=== PATIENT | male | born 1945 | race Caucasian/White ===

== ENCOUNTER → 2017-12-18 | Outpatient (CLI) | payer OTHER ==
[~2017-12-18] MED LIST: ADULT LOW DOSE81 MG PO; ALLOPURINOL 30300 M2 PO; ASPIRIN325 PO; COUMADIN 3 MG TA3 MG PO; CRESTOR5 MG PO; DEPO-TESTO200 MG/1 M IM; FLOMAX0.4 MG PO; HYDROCODON-ACE1 EAC7 PO; INVOKANA300 MG PO; LOPRESSOR25 PO; LOTREL 5-20 MG1 EACH PO; METFORMIN HCL500 MG PO; NITROGLYCERIN0.4 MG SUBLING; NORCO 5-325 TA1 EACH PO; OMEPRAZOLE40 MG PO; POTASSIUM CHLO10 MEQ PO; TESTOPEL75 MG IMPLANT; TUMS PO; VITAMIN B-12500 MCG PO; ZETIA10 MG PO
[2017-12-18 08:22] LABS: POTASSIUM 4.3 mmol/L (3.5-5.1)
== END ==
LOC: M.LAB 03:03
PROVIDERS: Anesthesiology
DX: Z01.812 Encounter for preprocedural laboratory examination (principal); I11.0 Hypertensive heart disease with heart failure; I50.32 Chronic diastolic (congestive) heart failure; E78.5 Hyperlipidemia, unspecified

== ENCOUNTER → 2018-01-04 | Outpatient (CLI) | payer OTHER ==
[2018-01-04 12:45] LABS: CALCIUM 8.8 mg/dL (8.5-10.1); CREATININE 1.3 mg/dL (0.6-1.3); POTASSIUM 4.1 mmol/L (3.5-5.1)
== END ==
LOC: M.LAB 12:19
PROVIDERS: Internal Medicine Cardiovascular Disease
DX: I13.0 Hypertensive heart and chronic kidney disease with heart failure and stage 1 through stage 4 chronic kidney disease, or unspecified chronic kidney disease (principal); E11.22 Type 2 diabetes mellitus with diabetic chronic kidney disease; I50.33 Acute on chronic diastolic (congestive) heart failure; N18.9 Chronic kidney disease, unspecified; Z79.01 Long term (current) use of anticoagulants; Z86.2 Personal history of diseases of the blood and blood-forming organs and certain disorders involving the immune mechanism; Z95.2 Presence of prosthetic heart valve

== ENCOUNTER 2018-03-27 00:56 | Emergency (ER) | payer OTHER ==
[~2018-03-27] VITALS: Ht 175.3 cm; Wt 106.6 kg
[~2018-03-27 00:56] MED LIST changes: -POTASSIUM CHLO10 MEQ PO
[2018-03-27] MEDS ORDERED: POTASSIUM CHLO10 MEQ PO (01:07)
[2018-03-27 02:00] VITALS: BP 131/88
== END 2018-03-27 02:00 | disposition home or self-care (01) ==
LOC: M.ERS 00:56
DX: L50.9 Urticaria, unspecified (principal); Z87.442 Personal history of urinary calculi; E78.5 Hyperlipidemia, unspecified; M10.9 Gout, unspecified; Z98.890 Other specified postprocedural states

== ENCOUNTER 2019-01-24 12:34 | Inpatient (IN) | payer OTHER ==
[~2019-01-24] VITALS: Ht 175.3 cm; Wt 115.2 kg
--- NOTE | ~2019-01-24 | PROC ---
[address] [address] PROCEDURE REPORT Name: JOHN HERNANDEZ JR Room: [address] IN M.R.#: [id number] Admission: 01/24/19 Attend Phys: Yair Colunga MD Discharge: 01/26/19 Date of : 47 Report #: [id number] THIS REPORT FOR: //name// For GI report, please see the Provation report in Perceptive 7 content. By: [id number] Records Staff DAISHA /JUDY
[~2019-01-24 12:34] MED LIST changes: +POTASSIUM CHLO10 MEQ PO
[2019-01-24 12:40] VITALS: BP 171/89
[2019-01-24] MEDS ORDERED: LASIX 20 MG TAB20 MG PO (12:49)
[2019-01-24] MEDS ORDERED: NEURONTIN 300300 M1 PO (12:50)
[2019-01-24] MEDS ORDERED: TRESIBA100 UNIT/1 SUBQ (12:50)
[2019-01-24] MEDS ORDERED: JARDIANCE10 MG PO (12:50)
[2019-01-24 13:21] LABS: ABSOLUTE BASOPHILS 0.1 thou/uL (0.0-0.2); ABSOLUTE EOSINOPHILS 0.1 thou/uL (0.0-0.7); ABSOLUTE LYMPHOCYTES 1.5 thou/uL (0.8-5.3); ABSOLUTE MONOCYTES 0.6 thou/uL (0.0-1.2); ABSOLUTE NEUTROPHILS 4.7 thou/uL (1.6-8.1); BASOPHILS 0.8 %; EOSINOPHILS 1.4 %; HEMATOCRIT 39.8 % (42.0-52.0); HEMOGLOBIN 12.6 gm/dL (14.0-18.0); LYMPHOCYTES 21.4 %; MCH 22.7 pg (26.0-34.0); MCHC 31.7 g/dL (28.0-37.0); MCV 71.6 fL (80.0-100.0); MONOCYTES 8.8 %; MPV 8.6 fl. (7.2-11.1); NUCLEATED RBCS 0 /100WBC; PLATELET COUNT* 191 thou/uL (150-400); POLYS 67.6 %; RBC 5.55 mil/uL (4.50-6.00); RDW-CV 19.4 % (10.5-14.5)
[2019-01-24 13:29] LABS: ANION GAP 7 mmol/L (7-16); BUN 19 mg/dL (7-18); CALCIUM 9.4 mg/dL (8.5-10.1); CHLORIDE 106 mmol/L (98-107); CO2 29 mmol/L (21-32); CREATININE 1.1 mg/dL (0.6-1.3); GLUCOSE 105 mg/dL (70-99); POTASSIUM 4.3 mmol/L (3.5-5.1); SODIUM 142 mmol/L (136-145)
[2019-01-24 13:30] LABS: APTT 23.8 Seconds (25.0-31.3); PROTIME 10.2 Seconds (9.20-11.50)
[2019-01-24 13:39] LABS: ALBUMIN 3.8 g/dL (3.4-5.0); ALKALINE PHOSPHATASE 63 U/L (46-116); LIPASE 72 U/L (73-393); SGOT 10 U/L (15-37); SGPT 19 U/L (30-65); TOTAL BILIRUBIN 0.7 mg/dL (<0.1-1.0); TOTAL PROTEIN 7.3 g/dL (6.4-8.2); TROPONIN-I LEVEL <0.06 ng/mL (<0.06)
[2019-01-24 14:45] LABS: HYPOCHROMASIA 2+; MICROCYTES 2+
[2019-01-24 14:46] LABS: ANISOCYTOSIS 1+
--- NOTE | 2019-01-24 15:04 | EKG ---
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
[2019-01-24 17:30] VITALS: BP 162/87
[2019-01-24 20:00] VITALS: BP 159/88
[2019-01-24 20:43] VITALS: BP 163/82
[2019-01-25] VITALS: BP 149/85
[2019-01-25 04:00] VITALS: BP 136/83
[2019-01-25 04:39] LABS: ABSOLUTE EOSINOPHILS 0.1 thou/uL (0.0-0.7); ABSOLUTE LYMPHOCYTES 1.4 thou/uL (0.8-5.3); ABSOLUTE MONOCYTES 0.7 thou/uL (0.0-1.2); ABSOLUTE NEUTROPHILS 3.9 thou/uL (1.6-8.1); BASOPHILS 0.7 %; EOSINOPHILS 1.8 %; HEMATOCRIT 39.2 % (42.0-52.0); HEMOGLOBIN 12.2 gm/dL (14.0-18.0); MCH 22.4 pg (26.0-34.0); MCHC 31.2 g/dL (28.0-37.0); MCV 71.9 fL (80.0-100.0); MPV 8.3 fl. (7.2-11.1); NUCLEATED RBCS 0 /100WBC; PLATELET COUNT* 189 thou/uL (150-400); POLYS 63.5 %; RBC 5.45 mil/uL (4.50-6.00); RDW-CV 19.3 % (10.5-14.5); WBC 6.2 thou/uL (4.0-11.0)
[2019-01-25 04:53] LABS: CALCIUM 8.6 mg/dL (8.5-10.1); POTASSIUM 3.8 mmol/L (3.5-5.1)
[2019-01-25 05:24] LABS: ANISOCYTOSIS 2+; HYPOCHROMASIA 2+; POIKILOCYTOSIS 2+
[2019-01-25 05:25] LABS: MICROCYTES 2+; OVALOCYTES Occasional; SCHISTOCYTES Occasional; TEARDROPS Occasional
[2019-01-25 05:26] LABS: POLYCHROMASIA Occasional
[2019-01-25 08:00] VITALS: BP 139/86
[2019-01-25 12:54] VITALS: BP 140/79
[2019-01-25 15:53] VITALS: BP 148/83
[2019-01-25 20:00] VITALS: BP 159/88
[2019-01-26] VITALS: BP 136/80
[2019-01-26 04:00] VITALS: BP 158/87
[2019-01-26 07:45] VITALS: BP 155/86
--- NOTE | 2019-01-26 08:58 | CON ---
[address] [address] CONSULTATION Name: JOHN HERNANDEZ JR Room: [address] IN .Jennifer.#: [id number] Admission: 01/24/19 Attend Phys: Yair Colunga MD Discharge: Date of : 47 Report #: [id number] THIS REPORT FOR: //name// CC: Yair Mahajanily Anjel DATE OF SERVICE: 01/25/2019 REASON FOR CONSULT: GI bleed. HISTORY OF PRESENT ILLNESS: This is a 74-year-old male who reports that his last colonoscopy was 8 years ago. He started having 2 bloody stools yesterday, which prompted his hospitalization. He is hemodynamically stable and has not had any BM since hospitalization. He denies any upper GI symptoms, as he denies nausea, vomiting, dyspepsia, GERD and dysphagia, even though he has been taking PPI for many years and reports that as long as he is on his PPI, he does not have any upper GI symptoms. The patient also admits to taking Coumadin and full-dose aspirin. He has had a CABG 2 years ago. PAST MEDICAL HISTORY: Significant for history of colon polyps more than 8 years ago, gastroesophageal reflux disease with EGD about 10 years ago, aortic stenosis, anemia, diabetes mellitus, coronary artery disease status post CABG and hypertension. ALLERGIES: No known drug allergy. MEDICATIONS: Please refer to MAR. SOCIAL HISTORY: The patient lives at home. Denies tobacco or alcohol use. FAMILY HISTORY: Negative for GI malignancy. PHYSICAL EXAMINATION: VITAL SIGNS: Reveals blood pressure of 136/83, respirations 20, pulse 70 and temperature 98.0. LUNGS: Clear. CARDIOVASCULAR: Regular. ABDOMEN: Large, soft, nontender and nondistended. Bowel sounds are positive. NEUROLOGIC: The patient is alert and oriented x 3. There are no focal neurologic deficits. LABORATORY DATA: Reveal sodium of 140, potassium is 3.8, BUN is 16, creatinine 1.0, glucose 96. Lipase is 72. AST 10, ALT 19 and albumin 3.8. INR is 1.0. WBC is 6.2 with hemoglobin of 12.2 and platelet of 189. [place] [address] CONSULTATION Name: MARYJOHNARA Rodriguez JR Room: [address] IN [facility]#: [id number] Admission: 01/24/19 Attend Phys: Yair Colunga MD Discharge: Date of : 47 Report #: [id number] IMAGING: CT of abdomen and pelvis was obtained. There was pandiverticulosis noted in the CT. There is also moderate right renal artery stenosis. There is no sign of active bleeding per CT. ASSESSMENT AND PLAN: The patient with what appears to be self-limited diverticular bleed. He is tolerating clear liquids. We will prep him and consider colonoscopy on Sunday. Meanwhile, monitor his hemoglobin, and if he continues to rebleed and drop his hemoglobin, we will transfuse accordingly. The patient is agreeable with plan. <ELECTRONICALLY SIGNED> By: Kofi Lu MD 01/26/19 0858 0948 [id number] Lu MD /nt
[2019-01-26 12:39] VITALS: BP 155/86
--- NOTE | 2019-01-28 17:06 | PATH ---
[place] [address] PATHOLOGY RPT PROCEDURE Name: JOHN HERNANDEZ JR Room: [address] IN M.R.#: [id number] Admission: 01/24/19 Date of : 47 Discharge: 01/26/19 Report #: [id number] Path Case #: [id number] [facility] Accession Number: [id number] . 01 Material submitted: . esophagus - BIOPSY DISTAL ESOPHAGUS RULE OUT BARRETTS. Modifiers: distal . 01 Clinical history: . Rule out Queen's . 02 Diagnosis: Colon biopsy, distal esophagus: - Benign esophageal and gastric/columnar types mucosa with moderate chronic inflammation typical of reflux, negative for goblet cells/diagnostic Queen's metaplasia and dysplasia. (ANTHONY:pit; 01/28/2019) QTP 01/28/2019 1250 Local . 02 Electronically signed: . Edwin Sheehan MD, Pathologist NPI- [id number] . 01 Gross description: . The specimen is received in formalin, labeled "Hernandez John Jr, biopsy distal esophagus" and consists of 2 fragments of [place] tissue measuring 0.3 x 0.2 cm and 0.3 x 0.3 cm which are entirely submitted in A1. (SDY; 01/27/2019) SYU/SYU 01/27/2019 1203 Local . 02 Pathologist provided ICD-10: K29.50 . 02 CPT . 166182 Specimen Comment: A courtesy copy of this report has been sent to Specimen Comment: [phone], . Specimen Comment: Report sent to / DR SRINIVASAN Performed at: 01 [facility] [address], [place], [place] [id number] MD Jason Hernández MD Phone: [phone] Performed at: [address] [address] [place] [id number] MD Edwin Sheehan MD Phone: [phone]
== END 2019-01-26 13:20 | disposition home or self-care (01) | DRG 378 ==
LOC: M.ERS 12:34 → M.2W 14:02 → M.TBA-ER 14:02 → M.2W 17:50
PROVIDERS: Family Medicine; ADMIT Internal Medicine
PROC: 0DB48ZX Excision of Esophagogastric Junction, Via Natural or Artificial Opening Endoscopic, Diagnostic (ICD-10-PCS; principal; 2019-01-24)
DX: K57.31 Diverticulosis of large intestine without perforation or abscess with bleeding (principal); D62 Acute posthemorrhagic anemia; I25.10 Atherosclerotic heart disease of native coronary artery without angina pectoris; K64.8 Other hemorrhoids; E11.9 Type 2 diabetes mellitus without complications; E78.5 Hyperlipidemia, unspecified; K44.9 Diaphragmatic hernia without obstruction or gangrene; K21.9 Gastro-esophageal reflux disease without esophagitis; G89.29 Other chronic pain; E11.40 Type 2 diabetes mellitus with diabetic neuropathy, unspecified; E11.22 Type 2 diabetes mellitus with diabetic chronic kidney disease; I12.9 Hypertensive chronic kidney disease with stage 1 through stage 4 chronic kidney disease, or unspecified chronic kidney disease; N18.9 Chronic kidney disease, unspecified; M10.9 Gout, unspecified; Z87.442 Personal history of urinary calculi; Z95.1 Presence of aortocoronary bypass graft; Z79.84 Long term (current) use of oral hypoglycemic drugs; Z79.899 Other long term (current) drug therapy; Z79.82 Long term (current) use of aspirin; Z95.2 Presence of prosthetic heart valve

== ENCOUNTER → 2019-12-19 | Outpatient (CLI) | payer MEDICARE ==
[~2019-12-19] MED LIST changes: +JARDIANCE10 MG PO; +LASIX 20 MG TAB20 MG PO; +NEURONTIN 300300 M1 PO; +TRESIBA100 UNIT/1 SUBQ
== END ==
LOC: M.ULTRA 09:13
PROVIDERS: ATTEND Internal Medicine
DX: I10 Essential (primary) hypertension (principal)

== ENCOUNTER → 2020-01-15 | Outpatient (CLI) | payer MEDICARE ==
[2020-01-15 07:13] LABS: CREATININE 1.1 mg/dL (0.6-1.3)
== END ==
LOC: M.CT 12-30 12:03 → M.LAB 01-08 08:00 → M.CT 06:45
PROVIDERS: ATTEND Internal Medicine
DX: I70.1 Atherosclerosis of renal artery (principal); I10 Essential (primary) hypertension

== ENCOUNTER 2020-06-18 22:28 | Inpatient (IN) | payer MEDICARE ==
[~2020-06-18] VITALS: Ht 175.3 cm; Wt 90.7 kg
[2020-06-18 22:40] VITALS: BP 180/106
[2020-06-18] MEDS ORDERED: PROAIR HFA8.5 GM INH (23:16)
[2020-06-18] MEDS ORDERED: FERRETTS325 MG PO (23:17)
[2020-06-18] MEDS ORDERED: NORVASC5 M1 PO (23:17)
[2020-06-18] MEDS ORDERED: NEURONTIN100 MG PO (23:17)
[2020-06-18] MEDS ORDERED: LISINOPRIL10 MG PO (23:18)
[2020-06-18] MEDS ORDERED: MELOXICAM15 MG PO (23:18)
[2020-06-18] MEDS ORDERED: TRESIBA100 UNIT/1 SQ (23:18)
[2020-06-18 23:27] LABS: ABSOLUTE EOSINOPHILS 0.2 thou/uL (0.0-0.7); ABSOLUTE LYMPHOCYTES 2.4 thou/uL (0.8-5.3); ABSOLUTE MONOCYTES 0.6 thou/uL (0.0-1.2); ABSOLUTE NEUTROPHILS 4.8 thou/uL (1.6-8.1); BASOPHILS 0.5 %; EOSINOPHILS 1.9 %; HEMATOCRIT 51.8 % (42.0-52.0); HEMOGLOBIN 17.8 gm/dL (14.0-18.0); LYMPHOCYTES 29.7 %; MCH 30.4 pg (26.0-34.0); MCHC 34.3 g/dL (28.0-37.0); MCV 88.7 fL (80.0-100.0); MONOCYTES 7.6 %; MPV 8.4 fl. (7.2-11.1); NUCLEATED RBCS 0 /100WBC; PLATELET COUNT* 180 thou/uL (150-400); POLYS 60.3 %; RBC 5.84 mil/uL (4.50-6.00); RDW-CV 15.7 % (10.5-14.5)
[2020-06-18 23:33] LABS: CALCIUM 9.5 mg/dL (8.5-10.1); CREATININE 1.1 mg/dL (0.6-1.3); POTASSIUM 3.7 mmol/L (3.5-5.1)
[2020-06-18 23:35] LABS: PROTIME 9.9 Seconds (9.20-11.50)
[2020-06-18 23:44] LABS: ALBUMIN 3.6 g/dL (3.4-5.0); TOTAL BILIRUBIN 0.6 mg/dL (<0.1-1.0); TOTAL PROTEIN 7.1 g/dL (6.4-8.2)
[2020-06-18 23:59] LABS: INR < 0.9
[2020-06-19 01:09] LABS: URINE BILIRUBIN NEGATIVE (Negative); URINE BLOOD NEGATIVE (Negative); URINE CLARITY CLEAR; URINE COLOR YELLOW; URINE GLUCOSE-RANDOM 3+ (Negative); URINE KETONES NEGATIVE (Negative); URINE LEUKOCYTES-REFLEX NEGATIVE (Negative); URINE NITRITE-REFLEX NEGATIVE (Negative); URINE PROTEIN NEGATIVE (Negative); URINE SPECIFIC GRAVITY <= 1.005 (1.005-1.030); URINE UROBILINOGEN 0.2 E.U./dl (0.2-1.0)
[2020-06-19 02:27] VITALS: BP 160/80
[2020-06-19 02:45] VITALS: BP 159/80
[2020-06-19 08:00] VITALS: BP 145/90
[2020-06-19 10:05] LABS: ANION GAP 10 mmol/L (7-16); BUN 12 mg/dL (7-18); CALCIUM 8.6 mg/dL (8.5-10.1); CHLORIDE 103 mmol/L (98-107); CHOLESTEROL 129 mg/dL (<200); CO2 27 mmol/L (21-32); GLUCOSE 164 mg/dL (70-99); HDL CHOLESTEROL 30 mg/dL (>40); LDL CHOLESTEROL 70 mg/dL (<100); POTASSIUM 3.6 mmol/L (3.5-5.1); SODIUM 140 mmol/L (136-145); TC:HDL 4.3 Ratio (Not establshd); TRIGLYCERIDE 149 mg/dL (<150); VLDL 30 mg/dL (<40)
[2020-06-19 10:11] LABS: SERUM ASSESSMENT Clear
[2020-06-19 11:30] VITALS: BP 145/85
[2020-06-19 16:00] VITALS: BP 140/71
[2020-06-19 20:00] VITALS: BP 145/80
[2020-06-19 23:06] LABS: GLYCOHEMOGLOBIN (HGB A1C) 5.9 % (4.8-5.6)
[2020-06-20 01:01] VITALS: BP 123/83
[2020-06-20 03:51] LABS: HEMOGLOBIN 16.3 gm/dL (14.0-18.0); MCH 29.8 pg (26.0-34.0); MCHC 33.9 g/dL (28.0-37.0); MCV 88.1 fL (80.0-100.0); MPV 8.2 fl. (7.2-11.1); RBC 5.46 mil/uL (4.50-6.00); RDW-CV 15.5 % (10.5-14.5); WBC 7.3 thou/uL (4.0-11.0)
[2020-06-20 04:02] LABS: ALBUMIN 3.1 g/dL (3.4-5.0); CALCIUM 8.5 mg/dL (8.5-10.1); CREATININE 0.9 mg/dL (0.6-1.3); POTASSIUM 3.4 mmol/L (3.5-5.1); TOTAL BILIRUBIN 0.6 mg/dL (<0.1-1.0); TOTAL PROTEIN 6.2 g/dL (6.4-8.2)
[2020-06-20 04:32] VITALS: BP 126/62
[2020-06-20] MEDS ORDERED: CLOPIDOGREL75 MG PO (07:25)
[2020-06-20 08:00] VITALS: BP 128/91
[2020-06-20 12:00] VITALS: BP 164/84
[2020-06-20 12:47] VITALS: BP 128/91
--- NOTE | 2020-06-21 10:28 | EKG ---
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1945 Requested By: Areli Rubio Order Number: [id number] MD: Familia Rucker Measurements Intervals [place] Rate: 86 P: 45 MT: 155 QRS: -72 QRSD: 138 T: 71 QT: 392 QTc: 469 Interpretive Statements Sinus rhythm Left atrial enlargement RBBB and LAFB Compared to ECG 01/24/2019 13:12:56 No significant changes Electronically Signed On 06-21-2020 10:27:53 [employer] by Familia Rucker [email or web address] <ELECTRONICALLY SIGNED> By: Familia Rucker MD, [facility] 06/21/20 1027 34 34 Familia Rucker MD, [facility] /EPI
== END 2020-06-20 14:00 | disposition home or self-care (01) | DRG 69 ==
LOC: M.ERS 22:28 → M.TBA-ER 06-19 01:16 → M.2W 06-19 01:16
PROVIDERS: Emergency Medicine; Internal Medicine; ADMIT Internal Medicine; ATTEND Internal Medicine
DX: G45.9 Transient cerebral ischemic attack, unspecified (principal); R47.01 Aphasia; E78.5 Hyperlipidemia, unspecified; I10 Essential (primary) hypertension; E11.9 Type 2 diabetes mellitus without complications; I35.0 Nonrheumatic aortic (valve) stenosis; M10.9 Gout, unspecified; Z20.822 Contact with and (suspected) exposure to COVID-19; Z79.4 Long term (current) use of insulin; Z79.899 Other long term (current) drug therapy; Z79.82 Long term (current) use of aspirin